=== PATIENT | female | born 1970 | race Hispanic/Latino ===

== ENCOUNTER 2017-01-18 15:54 | Emergency (ER) | payer MEDICARE ==
--- NOTE | 2017-01-18 16:54 | XRay Report ---
FINAL REPORT EXAM: XR WRIST 3+V RT HISTORY: RT WRIST PAIN / FALL TECHNIQUE: Right wrist 3 views PRIORS: None. FINDINGS: Carpal bones maintain normal alignment. No acute fracture is identified. The distal radius and ulna are intact. Circumscribed low-density focus seen within the navicular consistent with bone cyst or small enchondroma. 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
[2017-01-18] MEDS ORDERED: NORCO 5/325 PO ONE (20:20)
--- NOTE | 2017-01-18 20:25 | Emergency Department Report ---
Upper Extremity - HPI Chief Complaint: Extremity Injury, Upper Stated Complaint: WRIST PAIN Time Seen by Provider: 01/18/17 20:13 Upper Extremity: Right Wrist Occurred When: 2 Days Mechanism: Fall Severity: mild Symptoms: Yes Pain with Movement, No Deformity, No Limited Range of Movement, No Numbness, No Weakness, No Swelling, No Bruising/Ecchymosis, No Laceration or Abrasion Other History: 46-year-old female presenting to the ED complaining of right wrist pain. Patient states she had a ground-level fall 2 days prior, she caught herself with her right upper extremity. Initially the extremity did not hurt however the last 48 hours is having soreness in the right wrist, worse with movement, improves with rest. Patient denies: trauma elsewhere, swelling, laceration, difficulty moving the wrist. ED Review of Systems ROS: Stated complaint: WRIST PAIN Other details as noted in HPI Comment: All other systems reviewed and negative Constitutional: denies: chills, fever Eyes: denies: eye pain, eye discharge, vision change ENT: denies: ear pain, throat pain Respiratory: denies: cough, shortness of breath, wheezing Cardiovascular: denies: chest pain, palpitations Endocrine: no symptoms reported Gastrointestinal: denies: abdominal pain, nausea, diarrhea Genitourinary: denies: urgency, dysuria, discharge Musculoskeletal: denies: back pain, joint swelling, arthralgia Skin: denies: rash, lesions Neurological: denies: headache, weakness, paresthesias Psychiatric: denies: anxiety, depression Hematological/Lymphatic: denies: easy bleeding, easy bruising ED Past Medical Hx - Past Medical History Hx Psychiatric Treatment: Yes (bipolar, anxiety) - Surgical History Additional Surgical History: back surgeries. - Social History Smoking Status: Current Every Day Smoker Substance Use Type: None, Alcohol - Medications Home Medications: Home Medications Medication Instructions Recorded Confirmed Last Taken Type HYDROcodone/APAP 5-325 [[place] 1 each PO Q6HR PRN #6 tablet 01/18/17 Unknown Rx 5/325] Ibuprofen [Motrin 800 MG tab] 800 mg PO Q8HR PRN #20 tablet 01/18/17 Unknown Rx Upper Extremity Exam - Exam General: Vital signs noted. No distress. Alert and acting appropriately. Head and Torso: No HEENT Abnormality, No Neck Tenderness, No Chest/Lungs Abnormality, No Abdominal Tenderness, No Back Tenderness Shoulder Exam: Yes Normal Range of Motion in Shoulder, No Shoulder Tenderness, No Clavicle Tenderness, No Shoulder Deformity, No AC Joint Tenderness Arm Exam: No Arm/Humerus Tenderness, No Arm Deformity Elbow: Yes Normal Range of Motion in Elbow, No Elbow Tenderness, No Elbow Deformity Forearm: Yes Forearm Tenderness (right distal wrist is tender to touch, full ROM ), No Forearm Deformity, No Pain with Pronation, No Pain with Supination Wrist: Yes Wrist Tenderness, Yes Normal ROM in Wrist, No Wrist Deformity, No Snuffbox Tenderness, No Pain with Axial Thumb Compression Hand: Yes Normal ROM in Digit(s), No Hand Tenderness, No Hand Deformity, No Digit Tenderness, No Digit(s) Deformity, No Tendon Dysfunction CMS Exam: Yes Normal Distal Pulses, Yes Normal Capillary Refill, Yes Normal Distal Sensation, No Broken Skin ED Course Vital Signs 01/18/17 16:00 Temperature 98.1 F Pulse Rate 76 Respiratory 18 Rate Blood Pressure 108/72 O2 Sat by Pulse 96 Oximetry - Orthopedic Splinting/Casting Injury #1 Side: right Upper Extremity Injury Location: wrist Upper Extremity Immobilizer: wrist splint ED Medical Decision Making - Medical Decision Making 38-year-old female presenting to the ED with wrist pain. Likely this is secondary to contusion from GLF 2 days prior. Was no evidence of fracture on x- ray. Patient placed in a wrist splint with comfort. Patient has had all incidental findings on x-ray explained to her- cyst. She agrees she is stable for Ortho follow up Critical care attestation.: If time is entered above; I have spent that time in minutes in the direct care of this critically ill patient, excluding procedure time. ED Disposition Clinical Impression: Right wrist sprain Disposition: - TO HOME OR SELFCARE Is pt being admited?: No Does the pt Need Aspirin: No Condition: Stable Instructions: Wrist Injury (ED) Prescriptions: HYDROcodone/APAP 5-325 [[place] 5/325] 1 each PO Q6HR PRN #6 tablet PRN Reason: Pain Ibuprofen [Motrin 800 MG tab] 800 mg PO Q8HR PRN #20 tablet PRN Reason: Pain , Severe (7-10) Referrals: PRIMARY CARE, [Primary Care Provider] - 3-5 Days KELLY GABRIEL MD [Staff Physician] - 3-5 Days WHITNEY RUBI MD [Staff Physician] - 3-5 Days Forms: Work/School Release Form(ED)
[2017-01-18 21:08] VITALS: BP 142/86
== END 2017-01-18 20:45 | disposition home or self-care (01) ==
LOC: ED 15:54
DX: S63.501A Unspecified sprain of right wrist, initial encounter (principal); F41.9 Anxiety disorder, unspecified; F31.9 Bipolar disorder, unspecified; F17.200 Nicotine dependence, unspecified, uncomplicated; W17.89XA Other fall from one level to another, initial encounter; Y93.89 Activity, other specified; Y92.89 Other specified places as the place of occurrence of the external cause; Y99.8 Other external cause status

== ENCOUNTER 2017-06-25 14:43 | Emergency (ER) | payer MEDICARE ==
[2017-06-25 14:48] VITALS: BP 127/81
[2017-06-25] MEDS ORDERED: TORADOL IM ONE (15:23)
--- NOTE | 2017-06-25 15:25 | Emergency Department Report ---
Blank Doc - Documentation Documentation: Patient is a 46-year-old female is presenting with several days of left shoulder pain. Patient has decreased range of motion is hard time lifting that arm. Patient does have some crepitus on physical exam consistent with possible arthritis with x-ray will be ordered to take a deeper level. Patient denies any trauma or cough congestion and fever to time.
--- NOTE | 2017-06-25 16:51 | XRay Report ---
FINAL REPORT EXAM: XR SHOULDER 2+V LT HISTORY: pain with movement TECHNIQUE: AP, Y, and oblique views of the left shoulder PRIORS: None. FINDINGS: There is no evidence of acute fracture or dislocation. The bony mineralization is normal. Soft tissues are unremarkable. Degenerative joint narrowing at the AC joint is present. IMPRESSION: No acute abnormality identified in the left shoulder.
--- NOTE | 2017-06-25 17:03 | Emergency Department Report ---
ED Upper Extremity Inj HPI - General Chief Complaint: Extremity Injury, Upper Stated Complaint: LEFT ARM PAIN Time Seen by Provider: 06/25/17 15:18 Source: patient Mode of arrival: Ambulatory Limitations: No Limitations - History of Present Illness Initial Comments: This is a 46-year-old female nontoxic, well nourished in appearance, no acute signs of distress presents to the ED with c/o of left shoulder pain 2 days. Patient denies any trauma to the area. Patient stated this is intermittent pain if she develops. Patient states she currently works at [employer] and picks up heavy boxes. Patient denies any numbness, tingling, fever, chills, nausea, vomiting, headache or stiff neck. She denies any allergies or significant past medical history. MD Complaint: Injury to:: right, shoulder -: days(s) (2) Other Extremity Injury: Shoulder: Left Other Injuries: none Place: work Severity scale (0 -10): 8 Improves With: immobilization, rest Worsens With: movement of extremity Associated Symptoms: denies other symptoms. denies: weakness, numbness, neck pain, suspects foreign body, nausea/vomiting, heard/felt popping sensat - Related Data Previous Rx's Medication Instructions Recorded Last Taken Type HYDROcodone/APAP 5-325 [[place] 1 each PO Q6HR PRN #6 tablet 01/18/17 Unknown Rx 5/325] Ibuprofen [Motrin 800 MG tab] 800 mg PO Q8HR PRN #20 tablet 01/18/17 Unknown Rx Cyclobenzaprine [Flexeril] 10 mg PO QHS PRN #7 tablet 06/25/17 Unknown Rx Ibuprofen [Motrin] 600 mg PO Q8H PRN #30 tablet 06/25/17 Unknown Rx Allergies Allergy/AdvReac Type Severity Reaction Status Date / Time No Known Allergies Allergy Verified 06/25/17 14:44 ED Review of Systems ROS: Stated complaint: LEFT ARM PAIN Other details as noted in HPI Constitutional: denies: chills, fever Eyes: denies: eye pain, eye discharge, vision change ENT: denies: ear pain, throat pain Respiratory: denies: cough, shortness of breath, wheezing Cardiovascular: denies: chest pain, palpitations Endocrine: no symptoms reported Gastrointestinal: denies: abdominal pain, nausea, diarrhea Genitourinary: denies: urgency, dysuria, discharge Musculoskeletal: arthralgia. denies: back pain, joint swelling Skin: denies: rash, lesions Neurological: denies: headache, weakness, paresthesias Psychiatric: denies: anxiety, depression Hematological/Lymphatic: denies: easy bleeding, easy bruising ED Past Medical Hx - Past Medical History Hx Psychiatric Treatment: Yes (bipolar, anxiety) - Surgical History Additional Surgical History: back surgeries. - Social History Smoking Status: Current Every Day Smoker Substance Use Type: Alcohol - Medications Home Medications: Home Medications Medication Instructions Recorded Confirmed Last Taken Type HYDROcodone/APAP 5-325 [[place] 1 each PO Q6HR PRN #6 tablet 01/18/17 Unknown Rx 5/325] Ibuprofen [Motrin 800 MG tab] 800 mg PO Q8HR PRN #20 tablet 01/18/17 Unknown Rx Cyclobenzaprine [Flexeril] 10 mg PO QHS PRN #7 tablet 06/25/17 Unknown Rx Ibuprofen [Motrin] 600 mg PO Q8H PRN #30 tablet 06/25/17 Unknown Rx ED Physical Exam - General Limitations: No Limitations General appearance: alert, in no apparent distress - Head Head exam: Present: atraumatic, normocephalic - Eye Eye exam: Present: normal appearance Pupils: Present: normal accommodation - ENT ENT exam: Present: mucous membranes moist - Neck Neck exam: Present: normal inspection, full ROM. Absent: tenderness, meningismus, lymphadenopathy, thyromegaly - Respiratory Respiratory exam: Present: normal lung sounds bilaterally. Absent: respiratory distress, wheezes, rales, rhonchi, stridor, chest wall tenderness, accessory muscle use, decreased breath sounds, prolonged expiratory - Cardiovascular Cardiovascular Exam: Present: regular rate, normal rhythm, normal heart sounds. Absent: bradycardia, tachycardia, irregular rhythm, systolic murmur, diastolic murmur, rubs, gallop - GI/Abdominal GI/Abdominal exam: Present: soft, normal bowel sounds. Absent: distended, tenderness, guarding, rebound, rigid, diminished bowel sounds - Rectal Rectal exam: Present: deferred - Extremities Exam Extremities exam: Present: normal inspection, full ROM, tenderness (deltoid muscle pain), normal capillary refill. Absent: pedal edema, joint swelling, calf tenderness - Expanded Upper Extremity Exam Left General: Present: normal inspection Shoulder Exam: Present: normal inspection, full ROM, tenderness (deltoid muscle region). Absent: swelling, abrasion, laceration, ecchymosis, deformity, crepidus, dislocation, erythema, tenderness over AC joint Upper Arm exam: Present: normal inspection, full ROM Elbow exam: Present: normal inspection, full ROM Forearm Wrist exam: Present: normal inspection, full ROM Hand Wrist exam: Present: normal inspection, full ROM Neuro motor exam: Present: wrist extension intact, thumb opposition intact, thumb IP flexion intact, thumb adduction intact, fingers 2-5 abduction intact Neurosensory exam: Present: 2-point discrimination, radial nerve intact, ulnar nerve intact, median nerve intact Vascular: Present: vascular compromise, normal capillary refill, radial pulse, brachial pulse, ulnar pulse - Back Exam Back exam: Present: normal inspection, full ROM, paraspinal tenderness (left cervical region). Absent: tenderness, CVA tenderness (L), muscle spasm, vertebral tenderness, rash noted - Neurological Exam Neurological exam: Present: alert, oriented X3, CN II-XII intact, normal gait, reflexes normal - Psychiatric Psychiatric exam: Present: normal affect, normal mood - Skin Skin exam: Present: warm, dry, intact, normal color. Absent: rash - Other Other exam information: Negative drop arm test. No joint swelling or joint redness. No signs of cellulitis. ED Course Vital Signs 06/25/17 14:44 Temperature 98.1 F Pulse Rate 80 Respiratory 18 Rate Blood Pressure 127/81 O2 Sat by Pulse 96 Oximetry - Reevaluation(s) Reevaluation #1: 06/25/17 17:01 Patient is speaking in full sentences with no signs of distress noted. - Consultations Consultation #1: 06/25/17 17:02 Patient has been consulted with Dr. Gamble about patient history, physical exam , and labs and examined and screened patient and agrees to ED plan of care and discharge plan of care. ED Medical Decision Making - Medical Decision Making This is a 46-year-old female that presents with left shoulder strain. Patient is stable and was examined by me and Dr. Gamble. X-ray has been obtained and dictated by radiologist within normal limits. Patient is notified of the x-ray results with noted by the patient. Patient received Toradol in the ED which patient symptoms is improving subsided. Upon examination there is noted signs of bursitis, cellulitis or joint effusion. Patient is discharged with Motrin and Flexeril. Patient was instructed not to operate any machinery while taking Flexeril due to drowsiness. Patient was referred and instructed to Follow-up with a orthopedic doctor in 3-5 days or if symptoms worsen and continue return to emergency room as soon as possible. At time of discharge, the patient does not seem toxic or ill in appearance. No acute signs of distress noted. Patient agrees to discharge treatment plan of care. No further questions noted by the patient. Critical care attestation.: If time is entered above; I have spent that time in minutes in the direct care of this critically ill patient, excluding procedure time. ED Disposition Clinical Impression: Left shoulder strain Qualifiers: Encounter type: initial encounter Qualified Code(s): S46.912A - Strain of unspecified muscle, fascia and tendon at shoulder and upper arm level, left arm , initial encounter Disposition: TO HOME OR SELFCARE Is pt being admited?: No Does the pt Need Aspirin: No Condition: Stable Instructions: Cyclobenzaprine (By mouth), Ibuprofen (By mouth) Additional Instructions: Follow-up with a orthopedic doctor in 3-5 days or if symptoms worsen and continue return to emergency room as soon as possible. Prescriptions: Cyclobenzaprine [Flexeril] 10 mg PO QHS PRN #7 tablet PRN Reason: Muscle Spasm Ibuprofen [Motrin] 600 mg PO Q8H PRN #30 tablet PRN Reason: Pain Referrals: PRIMARY CAREMD [Primary Care Provider] - 3-5 Days WHITNEY RUBI MD [Staff Physician] - 3-5 Days [facility] [Outside] - 3-5 Days [facility] [Outside] - 3-5 Days Forms: Work/School Release Form(ED)
== END 2017-06-25 17:14 | disposition home or self-care (01) ==
LOC: ED 14:43
DX: S46.912A Strain of unspecified muscle, fascia and tendon at shoulder and upper arm level, left arm, initial encounter (principal); F31.9 Bipolar disorder, unspecified; F41.9 Anxiety disorder, unspecified; F17.200 Nicotine dependence, unspecified, uncomplicated; X50.0XXA Overexertion from strenuous movement or load, initial encounter; Y93.89 Activity, other specified; Y99.0 Civilian activity done for income or pay; Y92.69 Other specified industrial and construction area as the place of occurrence of the external cause
CPT/HCPCS: 73030; 96372; 99283; J1885

== ENCOUNTER → 2017-06-25 | Emergency (ER) | payer MEDICARE | LOC: ED 15:03 | DX: M79.603 Pain in arm, unspecified (principal); Z53.21 Procedure and treatment not carried out due to patient leaving prior to being seen by health care provider ==

== ENCOUNTER 2017-09-16 19:47 | Emergency (ER) | payer MEDICARE ==
[2017-09-16 21:00] VITALS: BP 110/69
[2017-09-16] MEDS ORDERED: MOTRIN PO ONE ×2 (21:38)
== END 2017-09-16 22:45 | disposition left against medical advice (07) ==
LOC: ED 19:47
DX: T23.221A Burn of second degree of single right finger (nail) except thumb, initial encounter (principal); Z53.21 Procedure and treatment not carried out due to patient leaving prior to being seen by health care provider; X10.2XXA Contact with fats and cooking oils, initial encounter; Y93.89 Activity, other specified; Y92.89 Other specified places as the place of occurrence of the external cause; Y99.8 Other external cause status

== ENCOUNTER 2018-09-27 19:01 | Emergency (ER) | payer MEDICARE ==
--- NOTE | 2018-09-27 20:02 | Emergency Department Report ---
Blank Doc - Documentation Documentation: 47 y o female presents to ed with a hx of COPD present to Ed stating that she has been experiencing left sided chest pain with irregular heart beat states she hasnt felt like this before labs ACC eval
[2018-09-27 20:30] LABS: Basophils # (Auto) 0.1 K/mm3 (0.0-0.1); Basophils % (Auto) 1.3 % (0.0-1.8); Eosinophils # (Auto) 0.4 K/mm3 (0.0-0.4); Eosinophils % (Auto) 4.1 % (0.0-4.3); Hematocrit 41.8 % (30.3-42.9); Hemoglobin 14.3 gm/dl (10.1-14.3); Lymphocytes # (Auto) 3.1 K/mm3 (1.2-5.4); Lymphocytes % (Auto) 31.1 % (13.4-35.0); Mean Corpuscular HGB Conc 34 % (30-34); Mean Corpuscular Volume 91 fl (79-97); Monocytes % (Auto) 9.8 % (0.0-7.3); Platelet Count 270 K/mm3 (140-440); Red Blood Count 4.58 M/mm3 (3.65-5.03); Red Cell Distribution Width 13.5 % (13.2-15.2)
[2018-09-27 20:39] LABS: BUN/Creatinine Ratio 9; Blood Urea Nitrogen 7 mg/dL (7-17); Hemolysis Index 7
[2018-09-27] MEDS ORDERED: SOLU-Medrol IM ONE (20:47)
[2018-09-27] MEDS ORDERED: DUONEB *Not for PRN Use IH ONE (20:48)
[2018-09-27] MEDS ORDERED: IBUPROFEN PO ONE (20:48)
--- NOTE | 2018-09-27 21:15 | XRay Report ---
PROCEDURE: XR CHEST ROUTINE 2V TECHNIQUE: PA and lateral chest radiographs were obtained. HISTORY: Chest Pain COMPARISONS: None. FINDINGS: Heart: Normal. Mediastinum/Vessels: Normal. Lungs/Pleural space: Normal. Bony thorax: No acute osseous abnormality. IMPRESSION: Normal examination. This document is electronically signed by Moses Sepulveda MD., September 27 2018 10:13:11 PM ET
--- NOTE | 2018-09-27 21:36 | Emergency Department Report ---
ED General Adult HPI - General Chief complaint: Chest Pain Stated complaint: CHEST PAIN/SOB/STEFFANY Time Seen by Provider: 09/27/18 19:57 Source: patient Mode of arrival: Ambulatory Limitations: No Limitations - History of Present Illness Initial comments: Patient is a 47-year-old white female with a history of bipolar disorder and COPD, and heavy tobacco smoker presents to the ED with complaint of acute onset persistent shortness of breath, dry cough and pleuritic chest wall pain for the last 2 days. Patient states that she has been using her inhaler more frequently in the last 24 hours. Patient states that she does not use oxygen at home but that she only uses albuterol inhaler as needed. Patient denies fever, chills, nausea, vomiting, sore throat, nasal and sinus congestion, abdominal pain, dizziness or headache, diarrhea or dysuria. MD Complaint: shortness of breath, cough, pleuritic chest wall pain -: Sudden, days(s) (2) Location: chest Radiation: non-radiation Severity scale (0 -10): 5 Quality: aching, sharp Consistency: intermittent Improves with: none Worsens with: other (cough) Associated Symptoms: denies other symptoms, chest pain, cough, shortness of breath. denies: confusion, diaphoresis, fever/chills, malaise Treatments Prior to Arrival: none - Related Data Home Medications Medication Instructions Recorded Confirmed Last Taken OXcarbazepine [Trileptal] 150 mg PO BID 01/06/18 01/06/18 01/07/18 04:00 Ziprasidone HCl [Geodon] 80 mg PO BID 01/06/18 01/06/18 01/07/18 04:00 diazePAM [Diazepam] 2 mg PO BID 01/06/18 01/06/18 01/07/18 04:00 Previous Rx's Medication Instructions Recorded Last Taken Type Amoxicillin/Potassium Clav 1 each PO Q12H #20 tablet 09/27/18 Unknown Rx [Augmentin 875-125 Tablet] Benzonatate [Tessalon Perles] 100 mg PO Q8HR #30 capsule 09/27/18 Unknown Rx Prednisone [predniSONE 10 mg 10 mg PO .TAPER #1 tab.ds.pk 09/27/18 Unknown Rx (6-Day Pack, 21 Tabs)] Allergies Allergy/AdvReac Type Severity Reaction Status Date / Time No Known Allergies Allergy Verified 01/06/18 14:52 ED Review of Systems ROS: Stated complaint: CHEST PAIN/SOB/STEFFANY Other details as noted in HPI Comment: All other systems reviewed and negative Constitutional: no symptoms reported, see HPI. denies: chills, diaphoresis, fever, malaise Eyes: as per HPI. denies: eye pain, eye discharge, vision change ENT: as per HPI. denies: ear pain, throat pain, dental pain, hearing loss Respiratory: no symptoms reported, see HPI, cough, shortness of breath, wheez ing. denies: orthopnea, SOB with exertion, SOB at rest Cardiovascular: as per HPI, chest pain. denies: palpitations, dyspnea on exertion, orthopnea, edema, syncope, paroxysmal nocturnal dyspnea Endocrine: no symptoms reported, see HPI. denies: excessive sweating, intolerance to heat, increased hunger, increased thirst, unexplained weight gain, unexplained weight loss Gastrointestinal: as per HPI. denies: abdominal pain, nausea, vomiting, diarrhea Genitourinary: as per HPI. denies: urgency, dysuria, frequency, hematuria, discharge Musculoskeletal: as per HPI. denies: back pain, joint swelling, arthralgia Skin: as per HPI. denies: rash, lesions, change in color, change in hair/nails, pruritus Neurological: as per HPI. denies: headache, weakness, numbness, paresthesias, confusion Psychiatric: as per HPI, anxiety. denies: auditory hallucinations, visual hallucinations, homicidal thoughts, suicidal thoughts Hematological/Lymphatic: as per HPI. denies: easy bruising ED Past Medical Hx - Past Medical History Previous Medical History?: Yes Hx Psychiatric Treatment: Yes (bipolar, anxiety) Hx COPD: Yes Hx HIV: No - Surgical History Past Surgical History?: Yes Hx Breast Surgery: Yes (R BREAST BX) Additional Surgical History: back surgeries. - Social History Smoking Status: Current Every Day Smoker - Medications Home Medications: Home Medications Medication Instructions Recorded Confirmed Last Taken Type OXcarbazepine [Trileptal] 150 mg PO BID 01/06/18 01/06/18 01/07/18 04:00 History Ziprasidone HCl [Geodon] 80 mg PO BID 01/06/18 01/06/18 01/07/18 04:00 History diazePAM [Diazepam] 2 mg PO BID 01/06/18 01/06/18 01/07/18 04:00 History Amoxicillin/Potassium Clav 1 each PO Q12H #20 tablet 09/27/18 Unknown Rx [Augmentin 875-125 Tablet] Benzonatate [Tessalon Perles] 100 mg PO Q8HR #30 capsule 09/27/18 Unknown Rx Prednisone [predniSONE 10 mg 10 mg PO .TAPER #1 tab.ds.pk 09/27/18 Unknown Rx (6-Day Pack, 21 Tabs)] ED Physical Exam - General Limitations: No Limitations General appearance: alert, in no apparent distress - Head Head exam: Present: atraumatic, normocephalic, normal inspection - Eye Eye exam: Present: normal appearance, PERRL, EOMI. Absent: scleral icterus, conjunctival injection, nystagmus, periorbital swelling, periorbital tenderness Pupils: Present: normal accommodation - ENT ENT exam: Present: normal exam, normal orophraynx, mucous membranes moist, TM's normal bilaterally, normal external ear exam - Neck Neck exam: Present: normal inspection. Absent: tenderness, meningismus, full ROM - Respiratory Respiratory exam: Present: normal lung sounds bilaterally, wheezes. Absent: respiratory distress, rales, rhonchi, stridor, chest wall tenderness, accessory muscle use - Cardiovascular Cardiovascular Exam: Present: regular rate, normal rhythm, normal heart sounds - GI/Abdominal GI/Abdominal exam: Present: soft, normal bowel sounds. Absent: distended, hyperactive bowel sounds, organomegaly - Rectal Rectal exam: Present: deferred - Extremities Exam Extremities exam: Present: normal inspection, full ROM, normal capillary refill. Absent: pedal edema, joint swelling - Back Exam Back exam: Present: normal inspection, full ROM. Absent: tenderness, CVA tenderness (R), CVA tenderness (L), paraspinal tenderness - Neurological Exam Neurological exam: Present: alert, oriented X3, CN II-XII intact, normal gait, reflexes normal - Psychiatric Psychiatric exam: Present: anxious - Skin Skin exam: Present: warm, dry, intact, normal color ED Course Vital Signs 09/27/18 09/27/18 09/27/18 19:11 19:57 21:00 Temperature 98.0 F 98.0 F Pulse Rate 67 69 Respiratory 18 18 16 Rate Blood Pressure 165/94 165/94 O2 Sat by Pulse 98 98 Oximetry 09/27/18 21:04 Temperature Pulse Rate Respiratory 16 Rate Blood Pressure O2 Sat by Pulse 98 Oximetry - Reevaluation(s) Reevaluation #1: 09/27/18 22:08 EKG was performed, lungs are drawn and chest x-ray was ordered. Patient was treated with DuoNeb in the ED. On reevaluation, patient's wheezing that resolved and patient states that she is feeling much better. ED Medical Decision Making - Lab Data Result diagrams: 09/27/18 20:11 09/27/18 20:11 - EKG Data EKG shows normal: sinus rhythm Rate: normal - EKG Data 09/27/18 22:09 Normal sinus rhythm with a heart rate of [address] or T-wave abnormalities. - Radiology Data Radiology results: report reviewed, image reviewed No acute cardiopulmonary abnormalities. - Medical Decision Making Patient presented to the ED with complaint of shortness of breath and pleuritic chest pain from her COPD. Patient received DuoNeb treatment in the ED with Solu-Medrol, and labs were drawn. Chest x-ray shows no acute cardiopulmonary abnormalities. EKG shows normal sinus rhythm with a heart rate of [address] or T-wave abnormalities. Lab test results were reviewed and are unremarkable including troponin levels. On reevaluation, patient felt better with treatment and was discharged home on medications, and advised to follow up with her primary care physician in 3-5 days for reevaluation or return to the ED immediately if symptoms get worse. - Differential Diagnosis COPD Exacerbation; Acute upper resp infection, pleuritic chest wall pain Critical care attestation.: If time is entered above; I have spent that time in minutes in the direct care of this critically ill patient, excluding procedure time. ED Disposition Clinical Impression: COPD exacerbation, Acute upper respiratory infection, Shortness of breath, Acute chest wall pain Disposition: DC-01 TO HOME OR SELFCARE Is pt being admited?: No Does the pt Need Aspirin: No Condition: Stable Instructions: Chronic Obstructive Pulmonary Disease (ED), Dyspnea (ED), Chest Pain (ED) Additional Instructions: Take medications as advised with food, drink plenty of fluids and follow up with your primary care physician in 5-7 days for reevaluation. Return to the ED immediately if symptoms get worse. Prescriptions: Amoxicillin/Potassium Clav [Augmentin 875-125 Tablet] 1 each PO Q12H #20 tablet Prednisone [predniSONE 10 mg (6-Day Pack, 21 Tabs)] 10 mg PO .TAPER #1 tab.ds.pk Benzonatate [Tessalon Perles] 100 mg PO Q8HR #30 capsule Referrals: ARAM MULLER MD [Primary Care Provider] - 3-5 Days Forms: AMA Form Time of Disposition: 22:01 Print Language: KOREAN
[2018-09-27 22:13] VITALS: BP 142/80
== END 2018-09-27 22:10 | disposition home or self-care (01) ==
LOC: ED 19:01
DX: J44.1 Chronic obstructive pulmonary disease with (acute) exacerbation (principal); J06.9 Acute upper respiratory infection, unspecified; F17.200 Nicotine dependence, unspecified, uncomplicated
CPT/HCPCS: 36415; 71046; 80048; 84484; 85025; 93005; 93010; 94640; 96372; 99284; J2930

== ENCOUNTER 2018-10-07 10:49 | Emergency (ER) | payer MEDICARE ==
[2018-10-07 11:04] VITALS: BP 159/99
--- NOTE | 2018-10-07 11:07 | Emergency Department Report ---
Blank Doc - Documentation Documentation: This is a 47-year-old female that presents with SOB and chest pain. HX of PNA and is on Levo. This initial assessment/diagnostic orders/clinical plan/treatment(s) is/are subject to change based on patient's health status, clinical progression and re- assessment by fellow clinical providers in the ED. Further treatment and workup at subsequent clinical providers discretion. Patient/guardians urged not to elope from the ED as their condition may be serious if not clinically assessed and managed. Initial orders include: 1- Patient sent to [facility] for further evaluation and treatment 2- labs 3- EKG 4- CXR
[2018-10-07] MEDS ORDERED: IBUPROFEN PO ONE (11:17)
--- NOTE | 2018-10-07 11:36 | XRay Report ---
ROUTINE CHEST, TWO VIEWS: HISTORY: chest pain. The trachea, heart, mediastinal contour, lung betancur and bony thorax are unremarkable. IMPRESSION: Unremarkable chest x-ray.
[2018-10-07 11:45] LABS: Hematocrit 44.8 % (30.3-42.9); Hemoglobin 15.2 gm/dl (10.1-14.3); Mean Corpuscular HGB Conc 34 % (30-34); Mean Corpuscular Volume 91 fl (79-97); Platelet Count 313 K/mm3 (140-440); Red Blood Count 4.94 M/mm3 (3.65-5.03); Red Cell Distribution Width 13.5 % (13.2-15.2)
[2018-10-07 11:55] LABS: BUN/Creatinine Ratio 14; Blood Urea Nitrogen 10 mg/dL (7-17); Calcium 9.5 mg/dL (8.4-10.2); Hemolysis Index 5
[2018-10-07 13:07] LABS: Basophils % (Manual) 0 % (0.0-1.8); Eosinophils % (Manual) 0 % (0.0-4.3); Monocytes % (Manual) 0 % (0.0-7.3); Total Cells Counted 100
[2018-10-07 13:08] LABS: Anisocytosis Few; Platelet Estimate Consistent w Auto
--- NOTE | 2018-10-07 14:14 | Emergency Department Report ---
ED Chest Pain HPI - General Chief Complaint: Dyspnea/Respdistress Stated Complaint: CHEST PRESSURE Time Seen by Provider: 10/07/18 11:04 Source: patient Mode of arrival: Ambulatory Limitations: No Limitations - History of Present Illness Initial Comments: Patient is a 47-year-old female with past medical history of COPD and possible recent diagnosis of pneumonia who presented with chest pain. Patient states she has a pressure-like sensation chest is worse with breathing. Patient was here on 09/27/2018 for COPD exacerbation with wheezing. She was diagnosed with a upper respiratory infection with bronchospasm. This was started on Augmentin and prednisone. Patient states that 2 days ago she saw her primary care physician who diagnosed her with pneumonia. Patient is currently on Levaquin. The patient states she has no cough or congestion the last 2 days but has continued to have chest pressure and soreness with shortness of breath. She denies any fevers chills nausea vomiting diarrhea at this time. Severity scale (0 -10): 3 - Related Data Home Medications Medication Instructions Recorded Confirmed Last Taken OXcarbazepine [Trileptal] 150 mg PO BID 01/06/18 01/06/18 01/07/18 04:00 Ziprasidone HCl [Geodon] 80 mg PO BID 01/06/18 01/06/18 01/07/18 04:00 diazePAM [Diazepam] 2 mg PO BID 01/06/18 01/06/18 01/07/18 04:00 Previous Rx's Medication Instructions Recorded Last Taken Type Amoxicillin/Potassium Clav 1 each PO Q12H #20 tablet 09/27/18 Unknown Rx [Augmentin 875-125 Tablet] Benzonatate [Tessalon Perles] 100 mg PO Q8HR #30 capsule 09/27/18 Unknown Rx Prednisone [predniSONE 10 mg 10 mg PO .TAPER #1 tab.ds.pk 09/27/18 Unknown Rx (6-Day Pack, 21 Tabs)] Allergies Allergy/AdvReac Type Severity Reaction Status Date / Time No Known Allergies Allergy Verified 01/06/18 14:52 Heart Score - HEART Score History: Slightly suspicious EKG: Non-specific Age: 45-65 Risk factors: No known risk factors Troponin: < normal limit HEART Score: 2 ED Review of Systems ROS: Stated complaint: CHEST PRESSURE Other details as noted in HPI Comment: All other systems reviewed and negative ED Past Medical Hx - Past Medical History Previous Medical History?: Yes Hx Psychiatric Treatment: Yes (bipolar, anxiety) Hx COPD: Yes Hx HIV: No - Surgical History Past Surgical History?: Yes Hx Breast Surgery: Yes (R BREAST BX) Additional Surgical History: back surgeries. - Social History Smoking Status: Current Every Day Smoker Substance Use Type: Marijuana - Medications Home Medications: Home Medications Medication Instructions Recorded Confirmed Last Taken Type OXcarbazepine [Trileptal] 150 mg PO BID 01/06/18 01/06/18 01/07/18 04:00 History Ziprasidone HCl [Geodon] 80 mg PO BID 01/06/18 01/06/18 01/07/18 04:00 History diazePAM [Diazepam] 2 mg PO BID 01/06/18 01/06/18 01/07/18 04:00 History Amoxicillin/Potassium Clav 1 each PO Q12H #20 tablet 09/27/18 Unknown Rx [Augmentin 875-125 Tablet] Benzonatate [Tessalon Perles] 100 mg PO Q8HR #30 capsule 09/27/18 Unknown Rx Prednisone [predniSONE 10 mg 10 mg PO .TAPER #1 tab.ds.pk 09/27/18 Unknown Rx (6-Day Pack, 21 Tabs)] ED Physical Exam - General Limitations: No Limitations General appearance: alert, in no apparent distress - Head Head exam: Present: atraumatic, normocephalic - Eye Eye exam: Present: normal appearance - ENT ENT exam: Present: mucous membranes moist - Neck Neck exam: Present: normal inspection - Respiratory Respiratory exam: Present: normal lung sounds bilaterally. Absent: respiratory distress, wheezes, rales - Cardiovascular Cardiovascular Exam: Present: regular rate, normal rhythm. Absent: systolic murmur, diastolic murmur, rubs, gallop - GI/Abdominal GI/Abdominal exam: Present: soft, normal bowel sounds. Absent: distended, tenderness, guarding - Extremities Exam Extremities exam: Present: normal inspection - Back Exam Back exam: Present: normal inspection - Neurological Exam Neurological exam: Present: alert, oriented X3 - Psychiatric Psychiatric exam: Present: normal affect, normal mood - Skin Skin exam: Present: warm, dry, intact, normal color. Absent: rash ED Course Vital Signs 10/07/18 11:02 Temperature 97.9 F Pulse Rate 73 Respiratory 20 Rate Blood Pressure 159/99 O2 Sat by Pulse 99 Oximetry ED Medical Decision Making - Lab Data Result diagrams: 10/07/18 11:20 10/07/18 11:20 Lab Results 10/07/18 10/07/18 10/07/18 Range/Units 11:20 11:20 11:20 WBC 21.1 H (4.5-11.0) K/mm3 RBC 4.94 (3.65-5.03) M/mm3 Hgb 15.2 H (10.1-14.3) gm/dl Hct 44.8 H (30.3-42.9) % MCV 91 (79-97) fl MCH 31 (28-32) pg MCHC 34 (30-34) % RDW 13.5 (13.2-15.2) % Plt Count 313 (140-440) K/mm3 Add Manual Diff Complete Total Counted 100 Seg Neuts % (Manual) 91.0 H (40.0-70.0) % Band Neutrophils % 0 % Lymphocytes % (Manual) 9.0 L (13.4-35.0) % Reactive Lymphs % (Man) 0 % Monocytes % (Manual) 0 (0.0-7.3) % Eosinophils % (Manual) 0 (0.0-4.3) % Basophils % (Manual) 0 (0.0-1.8) % Metamyelocytes % 0 % Myelocytes % 0 % Promyelocytes % 0 % Blast Cells % 0 % Nucleated RBC % Not Reportable Seg Neutrophils # Man 19.2 H (1.8-7.7) K/mm3 Band Neutrophils # 0.0 K/mm3 Lymphocytes # (Manual) 1.9 (1.2-5.4) K/mm3 Abs React Lymphs (Man) 0.0 K/mm3 Monocytes # (Manual) 0.0 (0.0-0.8) K/mm3 Eosinophils # (Manual) 0.0 (0.0-0.4) K/mm3 Basophils # (Manual) 0.0 (0.0-0.1) K/mm3 Metamyelocytes # 0.0 K/mm3 Myelocytes # 0.0 K/mm3 Promyelocytes # 0.0 K/mm3 Blast Cells # 0.0 K/mm3 WBC Morphology Not Reportable Hypersegmented Neuts Not Reportable Hyposegmented Neuts Not Reportable Hypogranular Neuts Not Reportable Smudge Cells Not Reportable Toxic Granulation Not Reportable Toxic Vacuolation Not Reportable Dohle Bodies Not Reportable Pelger-Huet Anomaly Not Reportable Norberto Rods Not Reportable Platelet Estimate Consistent w auto Clumped Platelets Not Reportable Plt Clumps, EDTA Not Reportable Large Platelets Not Reportable Giant Platelets Not Reportable Platelet Satelliting Not Reportable Plt Morphology Comment Not Reportable RBC Morphology Not Reportable Dimorphic RBCs Not Reportable Polychromasia Not Reportable Hypochromasia Not Reportable Poikilocytosis Not Reportable Anisocytosis Few Microcytosis Not Reportable Macrocytosis Not Reportable Spherocytes Not Reportable Pappenheimer Bodies Not Reportable Sickle Cells Not Reportable Target Cells Not Reportable Tear Drop Cells Not Reportable Ovalocytes Not Reportable Helmet Cells Not Reportable Costa-Severy Bodies Not Reportable [place] Rings Not Reportable Nain Cells Not Reportable Bite Cells Not Reportable Crenated Cell Not Reportable Elliptocytes Not Reportable Acanthocytes (Spur) Not Reportable Rouleaux Not Reportable Hemoglobin C Crystals Not Reportable Schistocytes Not Reportable Malaria parasites Not Reportable Rustam Bodies Not Reportable Hem Pathologist Commnt No D-Dimer 136.37 (0-234) ng/mlDDU Sodium 133 L (137-145) mmol/L Potassium 4.1 (3.6-5.0) mmol/L Chloride 94.8 L (98-107) mmol/L Carbon Dioxide 25 (22-30) mmol/L Anion Gap 17 mmol/L BUN 10 (7-17) mg/dL Creatinine 0.7 (0.7-1.2) mg/dL Estimated GFR > 60 ml/min BUN/Creatinine Ratio 14 % Glucose 124 H (65-100) mg/dL Calcium 9.5 (8.4-10.2) mg/dL Troponin T (0.00-0.029) ng/mL 10/07/18 Range/Units 11:20 WBC (4.5-11.0) K/mm3 RBC (3.65-5.03) M/mm3 Hgb (10.1-14.3) gm/dl Hct (30.3-42.9) % MCV (79-97) fl MCH (28-32) pg MCHC (30-34) % RDW (13.2-15.2) % Plt Count (140-440) K/mm3 Add Manual Diff Total Counted Seg Neuts % (Manual) (40.0-70.0) % Band Neutrophils % % Lymphocytes % (Manual) (13.4-35.0) % Reactive Lymphs % (Man) % Monocytes % (Manual) (0.0-7.3) % Eosinophils % (Manual) (0.0-4.3) % Basophils % (Manual) (0.0-1.8) % Metamyelocytes % % Myelocytes % % Promyelocytes % % Blast Cells % % Nucleated RBC % Seg Neutrophils # Man (1.8-7.7) K/mm3 Band Neutrophils # K/mm3 Lymphocytes # (Manual) (1.2-5.4) K/mm3 Abs React Lymphs (Man) K/mm3 Monocytes # (Manual) (0.0-0.8) K/mm3 Eosinophils # (Manual) (0.0-0.4) K/mm3 Basophils # (Manual) (0.0-0.1) K/mm3 Metamyelocytes # K/mm3 Myelocytes # K/mm3 Promyelocytes # K/mm3 Blast Cells # K/mm3 WBC Morphology Hypersegmented Neuts Hyposegmented Neuts Hypogranular Neuts Smudge Cells Toxic Granulation Toxic Vacuolation Dohle Bodies Pelger-Huet Anomaly Norberto Rods Platelet Estimate Clumped Platelets Plt Clumps, EDTA Large Platelets Giant Platelets Platelet Satelliting Plt Morphology Comment RBC Morphology Dimorphic RBCs Polychromasia Hypochromasia Poikilocytosis Anisocytosis Microcytosis Macrocytosis Spherocytes Pappenheimer Bodies Sickle Cells Target Cells Tear Drop Cells Ovalocytes Helmet Cells Costa-Severy Bodies Ridge[place] Rings Nain Cells Bite Cells Crenated Cell Elliptocytes Acanthocytes (Spur) Rouleaux Hemoglobin C Crystals Schistocytes Malaria parasites Rustam Bodies Hem Pathologist Commnt D-Dimer (0-234) ng/mlDDU Sodium (137-145) mmol/L Potassium (3.6-5.0) mmol/L Chloride (98-107) mmol/L Carbon Dioxide (22-30) mmol/L Anion Gap mmol/L BUN (7-17) mg/dL Creatinine (0.7-1.2) mg/dL Estimated GFR ml/min BUN/Creatinine Ratio % Glucose (65-100) mg/dL Calcium (8.4-10.2) mg/dL Troponin T < 0.010 (0.00-0.029) ng/mL - EKG Data -: EKG Interpreted by Me - EKG Data 10/07/18 14:15 EKG shows sinus rhythm rate of 69. [place] is leftward otherwise intervals are normal. Patient has a right bundle branch block and left anterior fascicular block present. Patient with T-wave inversion in V1 through V3. There are no ST segment elevations. There is no change since the EKG on 09/27/2018 - Radiology Data Radiology results: report reviewed (chest x-ray shows hyperinflation however there is no infiltrates present) - Medical Decision Making Patient is a 47-year-old female who is presenting with soreness to the chest. Patient had a prolonged visit secondary to her troponin not resulting. After 3 hours patient states she did not want to wait any longer and asked the nursing staff to sign out AGAINST MEDICAL ADVICE. Patient's d-dimer was within normal limits. White count likely is elevated secondary to her recent steroid use. But again the troponin has not resulted. Patient does not have ST elevation PA according to the EKG however I do not know what her troponin is and I did not advise the patient to leave when she did. Critical care attestation.: If time is entered above; I have spent that time in minutes in the direct care of this critically ill patient, excluding procedure time. ED Disposition Clinical Impression: Acute chest pain Disposition: DC-07 LEFT AGAINST MED ADVICE Is pt being admited?: No Does the pt Need Aspirin: No Condition: Stable Instructions: Chest Pain (ED) Referrals: REBECA CARRANZA MD [Primary Care Provider] - 3-5 Days Time of Disposition: 14:17
== END 2018-10-07 14:00 | disposition left against medical advice (07) ==
LOC: ED 10:49
DX: R07.89 Other chest pain (principal); R06.02 Shortness of breath; F31.9 Bipolar disorder, unspecified; J44.9 Chronic obstructive pulmonary disease, unspecified; F41.9 Anxiety disorder, unspecified; F17.200 Nicotine dependence, unspecified, uncomplicated; F12.10 Cannabis abuse, uncomplicated; Z79.2 Long term (current) use of antibiotics; Z79.899 Other long term (current) drug therapy; Z98.890 Other specified postprocedural states
CPT/HCPCS: 36415; 71046; 80048; 84484; 85007; 85025; 85379; 93005; 93010